=== PATIENT | female | born 1945 | race Caucasian/White ===

== ENCOUNTER 2017-03-19 02:55 | Inpatient (IN) | payer MEDICARE, OTHER ==
[~2017-03-19] VITALS: Ht 157.5 cm; Wt 64.6 kg
[2017-03-19] VITALS (143 sets, daily range): BP systolic 109–149; BP diastolic 52–89; PULSE 79–883; TEMP 98–98.3; O2SAT 76–100
[~2017-03-19 02:55] MED LIST: AMBIEN 5MG TABLE5 MG PO; AMBIEN10 MG PO; CALCIUM + D 6001 TA1 PO; ENBREL50 MG/ML SC; FAMILY PHARMAC0.4 MG PO; FOSAMAX 70MG TA70 MG PO; LEVAQUIN500 MG PO; NEXIUM 40MG40 MG PO; NORCO 325 MG-7.1 TAB PO; ORENCIA125 MG/ML SC; PHENERGAN 25 TA25 MG PO; PHENERGAN25 MG RC; PRED-PAK 455 MG PO; PROMETHAZINE25 M1 PO; SKELAXIN 800MG800 MG PO; SYNTHROID0.05 MG/TA PO; TIROSINT50 MCG PO; TRAMADOL PO; TREXALL5 MG PO; ULTRAM 50MG TAB50 MG; ZESTRIL40 MG PO; ZOFRAN 4MG T4 MG/TAB PO; [UNRECOGNIZED DRUG - OTHER] TP
[2017-03-19 03:26] LABS: BASO # 0.1 (0.0-0.2); BASO % 0.7 % (0.0-2.0); EOS # 0.1 (0.0-0.7); EOS % 1.2 % (0-4.0); GRAN # 7.4 (1.4-6.5); GRAN % 83.5 % (42.2-75.2); HEMATOCRIT 43.2 % (37.0-47.0); HEMOGLOBIN 13.5 g/dl (12.5-16.0); LYMPH # 0.5 (1.2-3.4); LYMPH % 5.8 % (20.0-51.0); MEAN CELL VOLUME 89 fl (80.0-100.0); MEAN CORPUSCULAR HEMOGLOBIN 28 pg (27.0-31.0); MEAN CORPUSCULAR HGB CONC 31 g/dl (33.0-37.0); MEAN PLATELET VOLUME 10.3 fl (7.4-10.4); MONO # 0.8 (0.1-0.6); MONO % 8.4 % (1.7-9.3); PLATELET COUNT 340 K/mm3 (130-400); RED BLOOD COUNT 4.85 M/mm3 (4.10-5.30); WHITE BLOOD COUNT 8.9 K/mm3 (4.8-10.8)
[2017-03-19 03:35] LABS: ALANINE AMINOTRANSFERASE 38 U/L (9-52); ALBUMIN 4.2 gm/dL (3.5-5.0); ALKALINE PHOSPHATASE 159 U/L (50-136); ANION GAP 12 mmol/L (7-16); BILIRUBIN,TOTAL 0.8 mg/dL (0.0-1.0); BLOOD UREA NITROGEN 16 mg/dL (7-17); CALCIUM 10.2 mg/dL (8.4-10.2); CARBON DIOXIDE 29 mmol/L (22-30); CHLORIDE 98 mmol/L (98-107); CREATININE, serum 0.95 mg/dL (0.52-1.25); GLUCOSE 103 mg/dL (74-106); POTASSIUM 4.5 mmol/L (3.4-5.0); SODIUM 139 mmol/L (137-145); TOTAL PROTEIN 7.7 gm/dL (6.4-8.2)
[2017-03-19 03:36] LABS: PARTIAL THROMBOPLASTIN TIME 29.5 SECONDS (26.0-37.0)
[2017-03-19 03:39] LABS: ALCOHOL(ethanol),MEDICAL < 10 mg/dL
[2017-03-19 03:47] LABS: B-TYPE NATRIURETIC PEPTIDE 139 pg/mL (0-125)
[2017-03-19 03:51] LABS: TROPONIN-I < 0.012 ng/mL (0.000-0.034)
[2017-03-19 04:39] LABS: COLLECTION METHOD CLEAN CATCH
[2017-03-19 04:49] LABS: PH 7 (5-8); SQUAMOUS EPITHELIAL 0-2 /hpf; URINE APPEARANCE Clear; URINE BACTERIA None Seen /hpf; URINE BILIRUBIN Negative (NEGATIVE); URINE BLOOD 1+ (NEGATIVE); URINE COLOR Straw; URINE GLUCOSE Negative (NEGATIVE); URINE KETONE Negative (NEGATIVE); URINE LEUKOCYTE ESTERASE Negative (NEGATIVE); URINE PROTEIN(semi-quant) Negative (NEGATIVE); URINE RBC 0-2 /hpf; URINE UROBILINOGEN Negative (NEGATIVE); URINE WBC 0-2 /hpf
[2017-03-19] MEDS ORDERED: NEURONTIN300 MG/CAP PO ×3 (05:39→10:25)
[2017-03-19] MEDS ORDERED: PAMELOR75 MG PO (05:40)
[2017-03-19] MEDS ORDERED: OTREXUP25 MG/0.4 SQ (10:28)
[2017-03-19] MEDS ORDERED: NORCO 325 MG-51 TAB PO (18:26)
[2017-03-20 00:24] VITALS: BP 153/81; PULSE 77; TEMP 98.4
[2017-03-20 04:52] VITALS: BP 147/87; PULSE 93; TEMP 98.2
[2017-03-20 05:02] LABS: ARTERIAL BLD GAS TCO2 CT 25.8; ARTERIAL BLOOD GAS BASE EXCESS 1.2 (-2-2); ARTERIAL BLOOD GAS HCO3 24.7 meq/L (22-26); ARTERIAL BLOOD GAS PO2 70.1 mmHg (80-100); ARTERIAL BLOOD GAS pH 7.46 (7.35-7.45); OXYHEMOGLOBIN 93.7 %
[2017-03-20 05:03] LABS: ALLEN TEST YES; ALLENS TEST RESULT PASS; ATS? YES
[2017-03-20 08:37] VITALS: BP 150/96; PULSE 92; TEMP 98
[2017-03-20 12:00] VITALS: BP 159/96; PULSE 98; TEMP 98.2
[2017-03-20] MEDS ORDERED: MULTAQ400 MG PO (12:42)
[2017-03-20] MEDS ORDERED: ELIQUIS 5MG PO (12:42)
[2017-03-20] MEDS ORDERED: HORIZANT600 MG PO (13:07)
[2017-03-20] MEDS ORDERED: FERROUS SU325 MG/TAB PO (13:10)
== END 2017-03-20 15:55 | disposition home or self-care (01) | DRG 309 ==
LOC: COL.ER 02:55 → ICU 05:40 → MEDICAL 17:16 → ICU 17:16 → MEDICAL 03-20 15:55
PROVIDERS: Emergency Medicine; Internal Medicine
PROC: 09Q0XZZ Repair Right External Ear, External Approach (ICD-10-PCS; principal; 2017-03-19)
DX: I48.91 Unspecified atrial fibrillation (principal); B02.29 Other postherpetic nervous system involvement; M06.9 Rheumatoid arthritis, unspecified; E03.9 Hypothyroidism, unspecified; R09.02 Hypoxemia; S01.311A Laceration without foreign body of right ear, initial encounter; Z66 Do not resuscitate; G47.33 Obstructive sleep apnea (adult) (pediatric); I10 Essential (primary) hypertension; R41.82 Altered mental status, unspecified; W06.XXXA Fall from bed, initial encounter; Y92.003 Bedroom of unspecified non-institutional (private) residence as the place of occurrence of the external cause
CPT/HCPCS: 99223-AI; 99239; J0690; J7030; J7050

== ENCOUNTER 2017-03-29 09:49 | Emergency (ER) | payer MEDICARE, OTHER ==
[~2017-03-29 09:49] MED LIST changes: +ELIQUIS 5MG PO; +FERROUS SU325 MG/TAB PO; +HORIZANT600 MG PO; +MULTAQ400 MG PO; +NEURONTIN300 MG/CAP PO; +NORCO 325 MG-51 TAB PO; +OTREXUP25 MG/0.4 SQ; +PAMELOR75 MG PO
[2017-03-29 09:56] VITALS: BP 174/97; PULSE 75
== END 2017-03-29 10:02 | disposition home or self-care (01) ==
LOC: COL.ER 09:49
DX: S01.81XD Laceration without foreign body of other part of head, subsequent encounter (principal); X58.XXXD Exposure to other specified factors, subsequent encounter

== ENCOUNTER → 2017-10-11 | Outpatient (CLI) | payer MEDICARE, OTHER | LOC: COL.PUL 08:00 | DX: R09.89 Other specified symptoms and signs involving the circulatory and respiratory systems (principal) ==

== ENCOUNTER → 2017-10-12 | Outpatient (CLI) | payer MEDICARE, OTHER | LOC: COL.RAD 10-11 09:30 | DX: M25.571 Pain in right ankle and joints of right foot (principal) | CPT/HCPCS: J3301; Q9967 ==

== ENCOUNTER → 2018-03-03 | Outpatient (CLI) | payer MEDICARE, OTHER | LOC: COL.RAD 08:00 | DX: M25.571 Pain in right ankle and joints of right foot (principal) | CPT/HCPCS: J3301; Q9967 ==

== ENCOUNTER 2019-10-13 10:47 | Observation (INO) | payer MEDICARE ==
[~2019-10-13] VITALS: Ht 157.5 cm; Wt 71.0 kg
[~2019-10-13 10:47] MED LIST changes: -SYNTHROID0.05 MG/TA PO; +SYNTHROID0.1 MG/TAB PO
[2019-10-13 14:38] VITALS: BP 104/68; PULSE 92; TEMP 98.2
[2019-10-13] MEDS ORDERED: XARELTO20 MG PO (14:39)
[2019-10-13] MEDS ORDERED: CARDIZEM CD 12120 MG PO (14:40)
[2019-10-13] MEDS ORDERED: NEURONTIN600 MG/TAB PO (14:41)
[2019-10-13 14:42] LABS: BASO # 0.1 (0.0-0.2); BASO % 1.1 % (0.0-2.0); EOS # 0.2 (0.0-0.7); EOS % 2.4 % (0-4.0); GRAN # 4.7 (1.4-6.5); GRAN % 71.1 % (42.2-75.2); HEMOGLOBIN 13.3 g/dl (12.5-16.0); LYMPH # 0.9 (1.2-3.4); MEAN CELL VOLUME 94 fl (80.0-100.0); MEAN CORPUSCULAR HEMOGLOBIN 30 pg (27.0-31.0); MEAN CORPUSCULAR HGB CONC 32 g/dl (33.0-37.0); MEAN PLATELET VOLUME 11.2 fl (7.4-10.4); MONO # 0.7 (0.1-0.6); MONO % 11.1 % (1.7-9.3); PLATELET COUNT 292 K/mm3 (130-400); RED BLOOD COUNT 4.46 M/mm3 (4.10-5.30); REDCELL DISTRIBUTION WIDTH-CV 14.6 % (11.5-14.5)
[2019-10-13] MEDS ORDERED: NEURONTIN300 MG/CAP PO ×2 (14:43)
[2019-10-13] MEDS ORDERED: VESICARE 5MG5 MG PO (14:45)
[2019-10-13] MEDS ORDERED: ULTRAM 50MG TAB50 MG PO (14:46)
[2019-10-13 14:58] LABS: ALBUMIN 4.4 gm/dL (3.5-5.0); BILIRUBIN,TOTAL 0.8 mg/dL (0.0-1.0); CALCIUM 9.6 mg/dL (8.4-10.2); CREATININE, serum 1.15 (0.52-1.25); POTASSIUM 4.8 mmol/L (3.4-5.0); TOTAL PROTEIN 7.4 gm/dL (6.4-8.2)
[2019-10-13 18:20] VITALS: BP 117/75; PULSE 87; TEMP 98
--- NOTE | 2019-10-13 18:33 | NUR ---
Pt rested well after arriving to the floor. Reported pain to abdomen d/t shingles and neuralgia but no issues with the hernia. Had a good appetite, POC discussed with patient who verbalizes understanding. Call light within reach.
[2019-10-13 19:39] VITALS: BP 108/85; PULSE 92; TEMP 97.7
--- NOTE | 2019-10-13 20:45 | NUR ---
Assessment complete. Resting in bed, watching television. Reports pain controlled at this time. Up ad alberto in room. Denies needs at this time.
[2019-10-13 23:43] VITALS: BP 109/84; PULSE 113; TEMP 97.6
[2019-10-14] VITALS (12 sets, daily range): BP systolic 108–135; BP diastolic 62–85; PULSE 57–116; TEMP 97.3–99.2
--- NOTE | 2019-10-14 01:30 | NUR ---
This nurse asked ELECTRICAL PROSPECTING OPERATOR if pt was up or moving prior to VS assessment. ELECTRICAL PROSPECTING OPERATOR reported that pt had just been up to bathroom.
--- NOTE | 2019-10-14 04:45 | NUR ---
Review of peripheral pulse and heart sounds suggested pt may be in an irregular rhythm. Notified physician and received orders for EKG and hospitalist consult. Orders initiated.
--- NOTE | 2019-10-14 06:55 | NUR ---
Notified Dr. Borden that EKG indicated A-fib and that the hospitalist had seen the patient and put in cardiology consult and an order for an echocardiogram.
[2019-10-14 07:43] LABS: CALCIUM 9.2 mg/dL (8.4-10.2); CREATININE, serum 0.83 (0.52-1.25); POTASSIUM 4.3 mmol/L (3.4-5.0)
--- NOTE | 2019-10-14 07:49 | NUR ---
RADIOLOGY CALLED AND NOTIFIED OF ECHO NEEDED FOR SURGICAL CLEARANCE.
[2019-10-14 07:57] LABS: TROPONIN-I < 0.012 ng/mL (0.000-0.035)
--- NOTE | 2019-10-14 08:00 | NUR ---
UPON ENTRY TO THE ROOM THE PATIENT IS RESTING IN BED. PATIENT IS A&OX4. IRREGULAR HEART RHYTHM WITH TACHYCARDIA NOTED. TELE IN PLACE. VSS. BOWEL SOUNDS ACTIVE ALL FOUR QUADRANTS. PATIENT DENIES COMPLAINTS OF N/V. POSITIVE PEDAL PULSES EQUAL BILATERALLY. NON-PITTING EDEMA TO BILATERAL FEET. LEFT AC TO INT. PATIENT CURRENTLY RATING HER PAIN A 7/10 ON A 0-10 SCALE AND DESCRIBES THE PAIN A CONSTANT BURNING ON HER RIGHT SIDE THAT WRAPS AROUND TO THE LOW RIGHT ABDOMEN. PATIENT STATES THAT THE PAIN IS FROM SHINGLES. NO LESIONS ON THE SKIN NOTED. SKIN INTACT. CALL LIGHT WITHIN REACH. PATIENT DENIES ANY OTHER NEEDS AT THIS TIME.
[2019-10-14 08:10] LABS: TSH w REFLEX 0.679 uIU/mL (0.465-4.680)
--- NOTE | 2019-10-14 08:14 | NUR ---
CALLED AND NOTIFIED OF CARDIOLOGY CONSULT. NO ORDERS GIVEN AT THIS TIME.
--- NOTE | 2019-10-14 10:25 | NUR ---
LR TO GRAVITY FLOW TUBING AND INFUSING TO LEFT AC IV. CONSENT FORM SIGNED AND ON PATIENT CHART. PATIENT TAKEN TO [facility] VIA BED BY VALENTIN STRATTON. WILL WAIT FOR PATIENT ARRIVAL BACK TO ROOM 349 POST-OP.
--- NOTE | 2019-10-14 11:57 | NUR ---
Plan is to return home with as care support. Patient reports that her Kem is going to transport her home and help her recover. Patient denies the use of any DME equipment. Patient obtains medications from [facility]. Patient reports that her PCP is Dr. Song. Patient denies any other concerns and reports that her spouse will transport her home. Will continue to follow for additional needs.
--- NOTE | 2019-10-14 14:35 | NUR ---
PATIENT ARRIVED BACK TO ROOM 349 VIA BED FROM PACU. PATIENT IS SEDATED BUT AROUSABLE. PATIENT OCCASIONALLY MOANS IN PAIN. ABDOMINAL LAP SITES X4 DRESSED WITH BANDAIDS AND ARE CD&I. SCD'S TO BLE. POST-OP VSS. WILL CONTINUE TO MONITOR.
--- NOTE | 2019-10-14 15:30 | NUR ---
Report received from VALENTIN Verma. Pt requesting assistance to bathroom, assisted to bathroom, SBA. Postops hooked back up, resting in bed, will continue to monitor.
--- NOTE | 2019-10-14 15:41 | NUR ---
REPORT GIVEN TO VALENTIN VALADEZ.
--- NOTE | 2019-10-14 18:06 | NUR ---
Pt doing well, has been up to bathroom multiple times. SCDs in place, resting in bed, sitting up and eating supper. Warm pack over upper abdomen for comfort. PT tolerating soft diet well for supper. Denies other needs, will give bedside shift report to nightshift nurse who will resume care.
--- NOTE | 2019-10-14 21:00 | NUR ---
Assessment complete. Resting in bed, watching television. C/O post operative abdominal. Warm pack provided, pain med provided. Denies other needs at this time.
[2019-10-15 04:23] VITALS: BP 115/71; PULSE 71; TEMP 98.5
[2019-10-15 08:14] VITALS: BP 114/76; PULSE 77; TEMP 98.2
--- NOTE | 2019-10-15 08:57 | NUR ---
Patient sitting up in bed eating breakfast. She did eat a little, but was overwhelmed but the large amount of food. She reports feeling better after getting a few hours rest this am. Pain manged at this time. Abdomen soft, lap site x4 bandaids intact. She reports passing flatus. Scds ble. Int. SHe is hopeful for discharge home today.
[2019-10-15] MEDS ORDERED: ULTRAM 50MG TAB50 MG PO ×4 (09:46→10:56)
--- NOTE | 2019-10-15 11:58 | NUR ---
Hospitalist, Domestic Travel Consultant, & Surgeon all rounded. Discharge orders obtained. Patient spouse here to pick her up. Int dc. Tele DC. Patient dresssed, assisted with tying her shoes. Script for ultram sent with patient, we reviewed medication safety & her home medication list. She is aware to hold her lisinipril & her eliquis until tmrw. She is to make follow up appt with cardiology, PCP & surgon tmrw. Patient denies questions or concerns. SHe is aware of any concerns to call doctor right aware
== END 2019-10-15 12:02 | disposition home or self-care (01) ==
LOC: COL.RAD 10:47 → SURG 10:47 → COL.RAD 14:30 → EDSTATUS 14:30 → COL.RAD 10-14 05:13 → SURG 10-14 05:14
PROVIDERS: Nurse Practitioner Family; ADMIT Surgery
DX: K40.20 Bilateral inguinal hernia, without obstruction or gangrene, not specified as recurrent (principal); I48.91 Unspecified atrial fibrillation; I10 Essential (primary) hypertension; E03.9 Hypothyroidism, unspecified; M06.9 Rheumatoid arthritis, unspecified; M81.0 Age-related osteoporosis without current pathological fracture; Z79.01 Long term (current) use of anticoagulants; Z79.891 Long term (current) use of opiate analgesic; Z79.899 Other long term (current) drug therapy
CPT/HCPCS: OP; 99223; C1781; G0378; J0282; J1170; J2405; J2704; J2710; J3010; J7060; Q9967

== ENCOUNTER → 2019-10-24 | Outpatient (CLI) | payer MEDICARE, OTHER ==
[~2019-10-24] MED LIST changes: +CARDIZEM CD 12120 MG PO; +NEURONTIN600 MG/TAB PO; +ULTRAM 50MG TAB50 MG PO; +VESICARE 5MG5 MG PO; +XARELTO20 MG PO
== END ==
LOC: MC.RAD 18:42
DX: Z12.31 Encounter for screening mammogram for malignant neoplasm of breast (principal)

== ENCOUNTER → 2019-10-27 | Outpatient (CLI) | payer MEDICARE, OTHER | LOC: MC.RAD 09:10 | DX: R92.2 Inconclusive mammogram (principal) | CPT/HCPCS: G0279 ==

== ENCOUNTER → 2021-04-08 | Outpatient (CLI) | payer MEDICARE | LOC: MHCPAIN 09:58 | DX: M47.817 Spondylosis without myelopathy or radiculopathy, lumbosacral region (principal); M53.3 Sacrococcygeal disorders, not elsewhere classified; M25.551 Pain in right hip; B02.29 Other postherpetic nervous system involvement | CPT/HCPCS: G0463 ==

== ENCOUNTER → 2021-04-17 | Outpatient (CLI) | payer MEDICARE | LOC: MHCPAIN 13:26 | DX: M47.817 Spondylosis without myelopathy or radiculopathy, lumbosacral region (principal); M53.3 Sacrococcygeal disorders, not elsewhere classified | CPT/HCPCS: G0260; J1040; Q9967 ==

== ENCOUNTER → 2021-05-06 | Outpatient (CLI) | payer MEDICARE | LOC: MHCPAIN 10:19 | DX: M53.3 Sacrococcygeal disorders, not elsewhere classified (principal); B02.29 Other postherpetic nervous system involvement; G89.29 Other chronic pain | CPT/HCPCS: G0463 ==

== ENCOUNTER 2021-05-19 09:45 | Outpatient (RCR) | payer MEDICARE | END 2021-05-30 | disposition home or self-care (01) | LOC: PT.GENESIS | DX: M79.671 Pain in right foot (principal); Z98.890 Other specified postprocedural states ==

== ENCOUNTER → 2021-09-30 | Outpatient (CLI) | payer MEDICARE | LOC: MHCPAIN 14:00 | DX: M53.3 Sacrococcygeal disorders, not elsewhere classified (principal); M79.2 Neuralgia and neuritis, unspecified; M54.50 Low back pain, unspecified; B02.29 Other postherpetic nervous system involvement | CPT/HCPCS: G0463 ==

== ENCOUNTER → 2021-10-09 | Outpatient (CLI) | payer MEDICARE | LOC: MHCPAIN 12:21 | DX: M53.3 Sacrococcygeal disorders, not elsewhere classified (principal); M47.817 Spondylosis without myelopathy or radiculopathy, lumbosacral region | CPT/HCPCS: G0260; J1040; Q9967 ==

== ENCOUNTER 2023-08-18 10:00 | Outpatient (RCR) | payer MEDICARE | END 2023-08-29 | disposition home or self-care (01) | LOC: PT.GENESIS | DX: M76.72 Peroneal tendinitis, left leg (principal) ==

== ENCOUNTER 2023-11-15 16:04 | Inpatient (IN) | payer MEDICARE ==
[~2023-11-15] VITALS: Ht 157.5 cm; Wt 66.9 kg
[~2023-11-15 16:04] MED LIST changes: +OTREXUP25 MG/0.4 PO; -OTREXUP25 MG/0.4 SQ
[2023-11-15] MEDS ORDERED: Morphine 4 MG/ML VIAL IV ONE (16:30)
[2023-11-15] MEDS ORDERED: NS 1,000 ML IV ONE (16:30)
[2023-11-15 17:07] LABS: INR 1.2 (0.8-3.0)
[2023-11-15 17:22] LABS: ALANINE AMINOTRANSFERASE 14 U/L (0-55); ALBUMIN 3.2 g/dL (3.4-4.8); ALKALINE PHOSPHATASE 117 U/L (40-150); ANION GAP 13 mmol/L (7-16); AST,SGOT 21 U/L (5-34); BILIRUBIN,TOTAL 1.2 mg/dL (0.2-1.2); BLOOD UREA NITROGEN 7 mg/dL (10-20); CALCIUM 9.5 mg/dL (8.4-10.2); CHLORIDE 100 mEq/L (98-107); CREATINE KINASE 308 U/L (29-168); CREATININE, serum 0.63 mg/dL (0.57-1.11); GLUCOSE 119 mg/dL (70-99); SODIUM 136 mEq/L (136-145); TOTAL PROTEIN 6.6 g/dl (6.2-8.1)
[2023-11-15 17:30] LABS: TROPONIN-I < 0.010 ng/mL (0.00-0.033)
[2023-11-15 17:57] LABS: BASO # 0.1 K/mm3 (0.0-0.2); BASO % 0.6 % (0.0-2.0); EOS % 0.3 % (0.0-4.0); GRAN # 8.1 K/mm3 (1.4-6.5); GRAN % 80.2 % (42.2-75.2); HEMATOCRIT 40.7 % (37.0-47.0); HEMOGLOBIN 13.5 g/dl (12.5-16.0); LYMPH # 0.5 K/mm3 (1.2-3.4); LYMPH % 4.9 % (20.0-51.0); MEAN CELL VOLUME 91 fl (80.0-100.0); MEAN CORPUSCULAR HEMOGLOBIN 30 pg (27-31); MEAN CORPUSCULAR HGB CONC 33 g/dl (33.0-37.0); MEAN PLATELET VOLUME 10.7 fl (7.4-10.4); MONO # 1.4 K/mm3 (0.1-0.6); MONO % 13.6 % (1.7-9.3); PLATELET COUNT 326 K/mm3 (130-400); RED BLOOD COUNT 4.48 M/mm3 (4.10-5.30); REDCELL DISTRIBUTION WIDTH-CV 15.5 % (11.5-14.5)
[2023-11-15 18:23] LABS: COLLECTION METHOD IN
[2023-11-15 18:31] LABS: URINE APPEARANCE CLEAR (CLEAR/HAZY); URINE BLOOD NEGATIVE (NEGATIVE); URINE COLOR YELLOW (YELLOW); URINE GLUCOSE NEGATIVE (NEGATIVE); URINE KETONE TRACE (NEGATIVE); URINE NITRATE NEGATIVE (NEGATIVE); URINE PROTEIN(semi-quant) TRACE (NEGATIVE)
[2023-11-15] MEDS ORDERED: dilTIAZem 25 MG/5 ML VIAL IV ONE (18:45)
[2023-11-15] MEDS ORDERED: *Potassium Replacement Protocol MC SCH (19:45)
--- NOTE | 2023-11-15 20:08 | NUR ---
RT RECIEVED CALL FROM LAB AT 1941 REGARDING CARBOXY HEMOGLOBIN SPECIMEN. RT RECIEVED SPECIMEN AT 1944. SPECIMEN DRAWN TIME ON PURPLE TOP TUBE NOTED TO BE 1645. SPECIMEN RAN AT 1947. CRITICAL LAB RESULTS GIVEN TO ROSA TRACEY MD. ORDERS FOR NEW VBG GIVEN.
[2023-11-15 21:00] VITALS: BP_SYST 123
[2023-11-15 21:51] LABS: ARTERIAL BLD GAS O2 SATURATION 99.2 % (92-100); ARTERIAL BLD GAS TCO2 CT 23.5; ARTERIAL BLOOD GAS BASE EXCESS -0.5 (-2-2); ARTERIAL BLOOD GAS HCO3 22.5 meq/L (22-26); ARTERIAL BLOOD GAS PCO2 32.1 mmHg (35-45); ARTERIAL BLOOD GAS pH 7.46 (7.35-7.45)
[2023-11-15 21:52] LABS: ARTERIAL BLOOD GAS PO2 143.7 mmHg (80-100)
[2023-11-15] MEDS ORDERED: Morphine 4 MG/ML VIAL IV PRN (22:15)
[2023-11-15] MEDS ORDERED: Ondansetron 4 MG/2 ML VIAL IV PRN (22:15)
[2023-11-15] MEDS ORDERED: NS 1,000 ML IV SCH (22:15)
[2023-11-15] MEDS ORDERED: Acetaminophen 325 MG TAB PO PRN (22:15)
[2023-11-15] MEDS ORDERED: LIPITOR20 MG PO (22:16)
[2023-11-15] MEDS ORDERED: SINGULAIR 110 MG/TAB PO (22:16)
[2023-11-15] MEDS ORDERED: ZYRTEC 10MG10 MG PO (22:17)
[2023-11-15] MEDS ORDERED: ZITHROMAX 250M250 MG PO ×2 (22:17→22:18)
[2023-11-15] MEDS ORDERED: DITROPAN XL10 MG PO (22:17)
[2023-11-15 23:30] VITALS: BP 125/86; PULSE 102; TEMP 97.9
[2023-11-16] VITALS (17 sets, daily range): BP systolic 83–132; BP diastolic 49–82; PULSE 82–114; TEMP 97.6–98.3
[2023-11-16 05:54] LABS: BASO # 0.1 K/mm3 (0.0-0.2); BASO % 0.9 % (0.0-2.0); EOS % 0.5 % (0.0-4.0); GRAN # 6.1 K/mm3 (1.4-6.5); LYMPH # 0.5 K/mm3 (1.2-3.4); LYMPH % 6.3 % (20.0-51.0); MEAN CELL VOLUME 91 fl (80.0-100.0); MEAN CORPUSCULAR HEMOGLOBIN 31 pg (27-31); MEAN CORPUSCULAR HGB CONC 34 g/dl (33.0-37.0); MEAN PLATELET VOLUME 10.2 fl (7.4-10.4); MONO # 1.4 K/mm3 (0.1-0.6); MONO % 17.1 % (1.7-9.3); PLATELET COUNT 295 K/mm3 (130-400); RED BLOOD COUNT 3.92 M/mm3 (4.10-5.30); REDCELL DISTRIBUTION WIDTH-CV 15.6 % (11.5-14.5)
[2023-11-16 05:55] LABS: HEMATOCRIT 35.5 % (37.0-47.0)
[2023-11-16 06:10] LABS: ALBUMIN 2.6 g/dL (3.4-4.8); CALCIUM 8.6 mg/dL (8.4-10.2); CREATININE, serum 0.56 mg/dL (0.57-1.11); MAGNESIUM 1.7 mg/dL (1.6-2.6); PHOSPHOROUS 2.3 mg/dL (2.3-4.7); POTASSIUM 3.6 mEq/L (3.5-4.5)
[2023-11-16] MEDS ORDERED: METHOTREXA2.5 MG/TAB PO (06:55)
[2023-11-16] MEDS ORDERED: MACROBID 1100 MG/CAP PO (07:02)
[2023-11-16] MEDS ORDERED: Potassium Bicarbonate/Citrate 20 MEQ Effervescent TAB PO SCH (07:15)
[2023-11-16] MEDS ORDERED: Albuterol/Ipratropium 3 MG-0.5 MG/3 ML Neb Soln IH PRN (08:45)
[2023-11-16] MEDS ORDERED: GENTLE IRON 281 EACH PO (08:53)
[2023-11-16] MEDS ORDERED: dilTIAZem CD (24-HR) 120 MG CAP PO SCH (09:00)
[2023-11-16] MEDS ORDERED: Lisinopril 20 MG TAB PO SCH (09:00)
--- NOTE | 2023-11-16 09:45 | NUR ---
pt a&ox4 resting in bed. pt reports no pain at rest. pt npo for potential surgery today. cardiolog in assessing patient, pt in afib on tele. dominguez to dd with clear yellow urine output. potassium replaced per protocol. new IV started by AIVS. pt denies needs at this time. call light in reach. fall precautions in place.
[2023-11-16] MEDS ORDERED: Gabapentin 300 MG CAP PO SCH ×2 (12:00→21:00)
--- NOTE | 2023-11-16 12:15 | NUR ---
machine clothing worker met with patient to discuss discharge planning. Patient reports she lives alone in [place]. Patient reports her 4 months ago, so her next of kin and best contact would be Ramy, her son, P# [phone]. Patient also wanted to list her friend, Norm Rosa, P# [phone] as another contact. PCP is Dr. Song, pharmacy is [facility]. No issues affording medications. Insurance is Medicare Advantage [facility]. Patient reports her DPOA-HC is Ramy and her PCP should have a copy of the form. No DME, Patient reports to be independent with ADLS. Patient reports she is able to transport herself to and from appointments prior to this hospitalization. SW discussed discharge plan and the liklihood of patient needing post acute rehab. SW provided Medicare.gov list of options, patient wants a referral sent to [facility]. SW explained she would contact her son to give him an update and discuss discharge plan. Patient reports her son is currently at her home working with a company on the gas leak which is what lead patient to falling yesterday. SW noticed patient's son was in her hospital room. SW met with patient and patient's son and discussed discharge plan. Patient's son reports to live in [place] and is currently working with a company to get patient's gas leak fixed. Patient's son expressed agreement with post acute rehab if needed after surgery. machine clothing worker met with patient's nurse and notified her of the discharge plan. machine clothing worker secure emailed referral to [facility]. ODILON contacted Stephanie at [facility] to obtain DPOA-HC. Stephanie faxed social media marketer the DPOA-HC and living will. ODILON notes patient appointed her , Donald, as primary then her son, Ramy. Patient's recently passed so her DPOA-HC is Ramy. machine clothing worker placed these copies on the chart. Discharge plan: SNF
[2023-11-16] MEDS ORDERED: Glycopyrrolate 0.2 MG/ML 1 ML VIAL ONE ×2 (13:37→13:51)
[2023-11-16] MEDS ORDERED: Lidocaine PF 2% (20 MG/ML) 5 ML VIAL ONE ×3 (13:37→13:51)
[2023-11-16] MEDS ORDERED: dexAMETHasone 10 MG/ML VIAL ONE ×2 (13:37→13:51)
[2023-11-16] MEDS ORDERED: fentaNYL 50 MCG/ML 2 ML VIAL ONE ×3 (13:37→15:00)
[2023-11-16] MEDS ORDERED: NS 10 ML IV ONE ×2 (13:37→13:51)
[2023-11-16] MEDS ORDERED: Ondansetron 4 MG/2 ML VIAL ONE ×2 (13:37→13:51)
[2023-11-16] MEDS ORDERED: Midazolam 2 MG/2 ML VIAL ONE (13:53)
--- NOTE | 2023-11-16 13:55 | NUR ---
utility maintenance worker was notified [facility] is able to accept patient pending insurance authorization. SW will submit for authorization after patient's surgery and PT eval is completed. DIscharge plan: [facility] - [facility]
--- NOTE | 2023-11-16 14:00 | NUR ---
pt off floor for procedure.
[2023-11-16] MEDS ORDERED: Naloxone 0.4 MG/ML VIAL IV PRN (14:30)
[2023-11-16] MEDS ORDERED: D5LR 1,000 ML IV SCH (14:30)
[2023-11-16] MEDS ORDERED: HYDROmorphone 0.5 MG/0.5 ML SYRINGE IV PRN (14:30)
[2023-11-16] MEDS ORDERED: oxyCODONE 5 MG TAB PO PRN (14:30)
[2023-11-16] MEDS ORDERED: HYDROmorphone 2 MG/1 ML VIAL ONE (15:09)
[2023-11-16] MEDS ORDERED: Topical Skin Adhesive 1 EACH (1 ML) TOP ONE (16:06)
[2023-11-16] MEDS ORDERED: droPERidol 2.5 MG/ML 2 ML VIAL IV PRN (16:30)
[2023-11-16] MEDS ORDERED: Ondansetron 4 MG/2 ML VIAL IV PRN (16:30)
[2023-11-16] MEDS ORDERED: hydrALAZINE 20 MG/ML 1 ML VIAL IV PRN (16:30)
[2023-11-16] MEDS ORDERED: fentaNYL 50 MCG/ML 1 ML SYRINGE/VIAL [PACU/SDC ONLY] IV PRN (16:30)
[2023-11-16] MEDS ORDERED: HYDROmorphone 1 MG/1 ML SYRINGE [PACU/SDC ONLY] IV PRN (16:30)
[2023-11-16] MEDS ORDERED: NS 1,000 ML IV ONE (19:00)
[2023-11-16] MEDS ORDERED: ceFAZolin 1 G in Water For Injection,Sterile 10 ML IV SCH (20:00)
[2023-11-16] MEDS ORDERED: Celecoxib 200 MG CAP PO SCH (21:00)
--- NOTE | 2023-11-16 22:26 | NUR ---
PATIENT ALERT AND ORIENTED BUT FORGETFUL. BP LOW, BOLUS INFUSING INTO RIGHT UPPER ARM IV. PATIENT REPORTS PAIN 8/10 TO RIGHT HIP. PATIENT ON 2L NC. PATIENT TOLERATING PO, PM MEDS ADMINISTERED. CARIZEM GTT GOING AT 5MG/HOUR INTO LEFT HAND IV. NO FURTHER NEEDS. CALL LIGHT IN REACH. BED ALARM ON.
[2023-11-17] VITALS (14 sets, daily range): BP systolic 86–141; BP diastolic 59–81; PULSE 88–108; TEMP 97.2–98.1
--- NOTE | 2023-11-17 00:19 | NUR ---
CONTACTED DR. AGARWAL TO REPORT PATIENT'S CONTINUED LOW BLOOD PRESSURE, RUNNING 80'S OVER 50'S. ORDER TO COMPLETE SECOND BOLUS AND ADMINISTER 5MG LOPRESSOR, AND DC CARDIZEM GTT. PATIENT'S BP CONTINUES TO RUN IN THE 80'S SYSTOLIC. DR. AGARWAL AWARE.
[2023-11-17] MEDS ORDERED: Metoprolol Tartrate 5 MG/5 ML VIAL IV ONE (00:30)
[2023-11-17] MEDS ORDERED: NS 1,000 ML IV ONE ×2 (00:30→22:00)
[2023-11-17] MEDS ORDERED: NS 1,000 ML IV SCH (05:00)
[2023-11-17] MEDS ORDERED: Metoprolol Tartrate 5 MG/5 ML VIAL IV PRN (05:00)
[2023-11-17 07:05] LABS: BASO % 0.4 % (0.0-2.0); GRAN # 6.3 K/mm3 (1.4-6.5); GRAN % 81.1 % (42.2-75.2); LYMPH # 0.5 K/mm3 (1.2-3.4); LYMPH % 6.8 % (20.0-51.0); MEAN CELL VOLUME 92 fl (80.0-100.0); MEAN CORPUSCULAR HGB CONC 34 g/dl (33.0-37.0); MONO # 0.8 K/mm3 (0.1-0.6); MONO % 10.7 % (1.7-9.3); PLATELET COUNT 233 K/mm3 (130-400); RED BLOOD COUNT 3.16 M/mm3 (4.10-5.30); REDCELL DISTRIBUTION WIDTH-CV 15.8 % (11.5-14.5)
[2023-11-17 07:07] LABS: ALBUMIN 2.2 g/dL (3.4-4.8); CALCIUM 8.6 mg/dL (8.4-10.2); CREATININE, serum 0.56 mg/dL (0.57-1.11); MAGNESIUM 1.8 mg/dL (1.6-2.6); POTASSIUM 4.4 mEq/L (3.5-4.5)
[2023-11-17 08:04] LABS: HEMOGLOBIN 9.8 g/dl (12.5-16.0); MEAN CORPUSCULAR HEMOGLOBIN 31 pg (27-31)
--- NOTE | 2023-11-17 08:25 | NUR ---
pt a&ox4 resting in bed, son at bedside. pt reports pain in her right hip, requesting pain medication. tylenol given prn per emar. dominguez remains in place. pt has 3 incisions to right leg, distal incision replaced due to bloody drainage. pt denies needs at this time. fall precautions in place. call light in reach.
[2023-11-17] MEDS ORDERED: Calcium Carbonate 500 MG TAB PO SCH (09:00)
[2023-11-17] MEDS ORDERED: Ascorbic Acid 500 MG TAB PO SCH (09:00)
[2023-11-17] MEDS ORDERED: Rivaroxaban 10 MG TAB PO SCH (09:00)
[2023-11-17] MEDS ORDERED: Acetaminophen 500 MG TAB PO SCH ×2 (09:00→12:00)
[2023-11-17] MEDS ORDERED: Baclofen 10 MG TAB PO SCH (09:30)
[2023-11-17] MEDS ORDERED: Digoxin 0.25 MG/ML 2 ML VIAL IV ONE ×2 (11:30→17:30)
[2023-11-17] MEDS ORDERED: Multivitamin TAB PO SCH (12:00)
--- NOTE | 2023-11-17 12:17 | NUR ---
Authorization request faxed to [facility] for SNF approval. Discharge plan: SNF pending authorization
--- NOTE | 2023-11-17 20:00 | NUR ---
PT A&OX3 LAYING IN BED. VSS. X3 DRSG TO RLE CDI, DENIES PAIN TO RT HIP. PT STATES PAIN IN RT HAND IS 5/10 FROM IV MED GIVEN EARLIER. GAVE SCHEDULED TYLENOL & WARM BLANKET. RICHMOND TO DD WITH KATHYA OUTPUT. NS @ 100ML/HR INFUSING TO RT UPPER ARM. BLE SCD & TEDS ON. PT DENYING OTHER NEEDS. CALL LIGHT IN REACH & FALL PRECAUTIONS IN PLACE.
--- NOTE | 2023-11-17 21:00 | NUR ---
PT REPORTING INCREASE IN PAIN TO RT HAND. PT MOANING IN ROOM & STATES PAIN IS NOW 9. BP ELEVATED 140S/80S. GAVE PRN OXYCODONE PER MAR
[2023-11-17] MEDS ORDERED: fentaNYL 50 MCG/ML 2 ML VIAL IV ONE (22:00)
--- NOTE | 2023-11-17 22:00 | NUR ---
PT CONTINUES TO C/O RT HAND PAIN 02/07. HR PER TELE IN 130S. HOSPITALIST LUIS ON UNIT & AWARE. NEW ORDERS FOR IV FENTANYL & IVF BOLUS GIVEN PER JUL.
--- NOTE | 2023-11-17 23:00 | NUR ---
PT NOW RESTING COMFORTABLY IN BED W/ UNLABORED RESP. PER TELE HR NOW 90S-100S
[2023-11-18] VITALS (20 sets, daily range): BP systolic 105–134; BP diastolic 62–90; PULSE 76–98; TEMP 97.5–98.5
--- NOTE | 2023-11-18 05:22 | NUR ---
PT RATING PAIN 8/10 TO RT HIP THIS MORNING, GAVE PRN NORCO & ICEPACK. PT STATES HER RT HAND FEELS MUCH BETTER. DENIES OTHER NEEDS. CALL LIGHT IN REACH & BED ALARM ON
[2023-11-18 06:34] LABS: BASO % 0.1 % (0.0-2.0); GRAN # 5.8 K/mm3 (1.4-6.5); LYMPH # 0.5 K/mm3 (1.2-3.4); LYMPH % 6.6 % (20.0-51.0); MEAN CELL VOLUME 91 fl (80.0-100.0); MEAN CORPUSCULAR HGB CONC 33 g/dl (33.0-37.0); MEAN PLATELET VOLUME 10.3 fl (7.4-10.4); MONO # 1.3 K/mm3 (0.1-0.6); MONO % 17.1 % (1.7-9.3); PLATELET COUNT 325 K/mm3 (130-400); RED BLOOD COUNT 2.59 M/mm3 (4.10-5.30); REDCELL DISTRIBUTION WIDTH-CV 15.6 % (11.5-14.5)
[2023-11-18 06:39] LABS: HEMATOCRIT 23.5 % (37.0-47.0); HEMOGLOBIN 7.7 g/dl (12.5-16.0); MEAN CORPUSCULAR HEMOGLOBIN 30 pg (27-31)
[2023-11-18 06:56] LABS: CALCIUM 8.5 mg/dL (8.4-10.2); CREATININE, serum 0.56 mg/dL (0.57-1.11); MAGNESIUM 1.7 mg/dL (1.6-2.6); PHOSPHOROUS 1.6 mg/dL (2.3-4.7); POTASSIUM 4.2 mEq/L (3.5-4.5)
--- NOTE | 2023-11-18 07:25 | NUR ---
Pt awake, laying in bed. No needs at this time. Call light in reach.
--- NOTE | 2023-11-18 08:44 | NUR ---
Pt sitting up in bed. A&Ox4. VSS. S1S2 with irregular rhythm. Clear lungs, diminished in bases. ABD round, soft, non-tender with audible bowel sounds. Palpable pulses in all extremities with 3/5 strength. Incisions on R hip is CDI with gauze dressing, R thigh CDI with gauze dressing, R knee, CDI with bulky SARAH dressing. TEDs and SCDs on. Pt denies n/v, hedache, dizziness. Pt reports pain 2/10 and tolerable. Pt on tele. No further needs. Family at bedside and Pt eating breakfast. Call light in reach and bed alarm on.
--- NOTE | 2023-11-18 10:52 | NUR ---
matrix worker received a call from community care team reporting pt was approved for SNF. ODILON spoke with Fiordaliza at [facility] and provided update on auth. She requested clinical updates. ODILON faxed updates at 9am. SW attended clinical rounding and was informed pt was hypotensive and had a fluid bolus that dropped her HGB. She will stay the night. ODILON informed Fiordaliza at [facility]. Discharge Plan: [facility] SNF when stable
--- NOTE | 2023-11-18 11:12 | NUR ---
Transferred Pt to chair with OT. Pt unable to stand on own. x2 assist lift and pivot to chair. No further needs.
--- NOTE | 2023-11-18 14:04 | NUR ---
Pt reports pain 12/07. Tolerable at the moment. PCT rechecked BP: 101/71. Call light in reach and bed alarm on. No further needs at this time.
--- NOTE | 2023-11-18 15:05 | NUR ---
Blood transfusion started. Pt's VSS. Explained common reactions. Verified blood unit with second RN
--- NOTE | 2023-11-18 15:17 | NUR ---
Pt tolerating infusion well. Increased infusion rate to 120 cc/hr. Call light in reach. Bed alarm on.
--- NOTE | 2023-11-18 16:51 | NUR ---
Pt tolerating infusion well. Pt requested to brush teeth. Assisted Pt with oral hygiene. No further needs. Call light in reach and bed alarm on.
--- NOTE | 2023-11-18 20:30 | NUR ---
PT A&O X4 LAYING IN BED. VSS. X3 DRSG TO RT HIP CDI. PT REPORTS PAIN 10/07, GAVE SCHEDULED TYLNEOL &ICEPACK. BLE SCDS ON. RICHMOND TO DD WITH KATHYA OUTPUT. INT TO RT UPPER ARM PATENT. PT DENYING FURTHER NEEDS. CALL LIGHT IN REACH & FALL PRECAUTIONS IN PLACE
[2023-11-18 21:03] LABS: HEMATOCRIT 29.4 % (37.0-47.0); HEMOGLOBIN 9.8 g/dl (12.5-16.0)
--- NOTE | 2023-11-18 22:25 | NUR ---
PT REQUESTING PAIN MEDS FOR RT HIP PAIN 01/07, GAVE PRN OXYCODONE PER MAR
[2023-11-19 00:20] VITALS: BP_SYST 134
[2023-11-19 04:00] VITALS: BP 124/76; PULSE 89; TEMP 97.6
[2023-11-19 04:53] VITALS: BP_SYST 124
[2023-11-19 07:04] LABS: MEAN CELL VOLUME 92 fl (80.0-100.0); MEAN CORPUSCULAR HEMOGLOBIN 30 pg (27-31); MEAN CORPUSCULAR HGB CONC 33 g/dl (33.0-37.0); MEAN PLATELET VOLUME 10.5 fl (7.4-10.4); PLATELET COUNT 339 K/mm3 (130-400); RED BLOOD COUNT 3.32 M/mm3 (4.10-5.30); REDCELL DISTRIBUTION WIDTH-CV 16.3 % (11.5-14.5)
[2023-11-19 07:08] LABS: HEMATOCRIT 30.5 % (37.0-47.0)
[2023-11-19 07:11] LABS: CALCIUM 8.6 mg/dL (8.4-10.2); CREATININE, serum 0.52 mg/dL (0.57-1.11); MAGNESIUM 1.7 mg/dL (1.6-2.6); PHOSPHOROUS 2.6 mg/dL (2.3-4.7); POTASSIUM 4.1 mEq/L (3.5-4.5)
--- NOTE | 2023-11-19 07:18 | NUR ---
Pt laying in bed. No needs at this time. Call light in reach.
[2023-11-19] MEDS ORDERED: dilTIAZem 30 MG TAB PO SCH (08:00)
[2023-11-19 08:24] LABS: BAND 4 % (0-10); LYMPHOCYTE 16 % (20.0-51.0); NEUTROPHILS 69 % (42.0-75.2); NUCLEATED RED BLOOD CELL 1 (0-6); PLATELET ESTIMATE NORMAL (NORMAL)
[2023-11-19 08:25] LABS: ANISOCYTOSIS 1+
[2023-11-19 08:27] LABS: BURR CELLS 2+
[2023-11-19 08:28] LABS: POLYCHROMASIA 1+
--- NOTE | 2023-11-19 08:28 | NUR ---
Pt laying in bed. Pt reporting pain 8/10 in right ABD, and down R leg. Pt thinks it is a mixture of surgical and Shingles pain. A&Ox4. VSS. S1S2 with irregular rhythm. Clear lungs on RA. ABD round, soft, non-tender with audible bowel sounds. Palpable pulses in all extremities with 4/5 strength in BUE and LLL, 3/5 strength in LRL. Pt denies n/v, headache, dizziness. R hip incision is CDI with gauze, Middle incision CDI with gauze, R knee incision CDI with bulky SARAH wrap. No further needs. Call light in reach and bed alarm on.
[2023-11-19] MEDS ORDERED: Magnesium Sulfate 4% 50 ML IV ONE (09:00)
[2023-11-19 09:04] VITALS: BP 136/73; PULSE 104; TEMP 97.8
[2023-11-19 09:25] VITALS: BP_SYST 136
[2023-11-19] MEDS ORDERED: CARDIZEM 30MG T30 MG PO (10:22)
[2023-11-19] MEDS ORDERED: TYLENOL 500MG500 MG PO (10:24)
[2023-11-19] MEDS ORDERED: ROXICODONE 55 MG/TAB PO (10:26)
--- NOTE | 2023-11-19 11:26 | NUR ---
sanitation worker hosing machinery attended clinical rounding with Dr. Mullen and pt is cleared to discharge to [facility] today. ODILON faxed updates and discharge orders to [facility]. She confirmed a transport time of 12:30pm. ODILON informed family and consumer science professor, VALENTIN Barber, and wrote the time on the whiteboard. ODILON met with pt and sonChapito this morning to complete IM from Medicare. Pt signed and verbalized understanding. Copy provided and original in chart. Discharge Plan: 12:30pm to [facility]
--- NOTE | 2023-11-19 12:21 | NUR ---
Pt sitting in bedside chair. Finished with lunch. Dressed Pt for transport. Removed tele box. D/C Pt's IV from R upper arm. Tip intact and pressure bandage applied. Call light in reach. Transport from [facility] on their way.
[2023-11-19 12:41] VITALS: BP 103/69; PULSE 75; TEMP 97.9
--- NOTE | 2023-11-19 12:54 | NUR ---
Pt transported to [facility]. Called report to VALENTIN Mclaughlin. Answered questions. No further needs.
== END 2023-11-19 12:55 | DRG 481 ==
LOC: COL.ER 16:04 → SURG 18:44
PROVIDERS: Internal Medicine; Nurse Practitioner; Orthopaedic Surgery Sports Medicine; ADMIT Internal Medicine
PROC: 0QS606Z Reposition Right Upper Femur with Intramedullary Internal Fixation Device, Open Approach (ICD-10-PCS; principal; 2023-11-16 14:30)
PROC: 30233N1 Transfusion of Nonautologous Red Blood Cells into Peripheral Vein, Percutaneous Approach (ICD-10-PCS; 2023-11-18)
DX: S72.141A Displaced intertrochanteric fracture of right femur, initial encounter for closed fracture (principal); B02.29 Other postherpetic nervous system involvement; I48.19 Other persistent atrial fibrillation; I10 Essential (primary) hypertension; E78.5 Hyperlipidemia, unspecified; G47.33 Obstructive sleep apnea (adult) (pediatric); M06.9 Rheumatoid arthritis, unspecified; M81.0 Age-related osteoporosis without current pathological fracture; Z96.621 Presence of right artificial elbow joint; W18.39XA Other fall on same level, initial encounter; Z96.622 Presence of left artificial elbow joint; E03.9 Hypothyroidism, unspecified; M25.572 Pain in left ankle and joints of left foot; G89.29 Other chronic pain; M19.90 Unspecified osteoarthritis, unspecified site; I95.81 Postprocedural hypotension; I95.9 Hypotension, unspecified; J44.9 Chronic obstructive pulmonary disease, unspecified; E83.39 Other disorders of phosphorus metabolism; D64.9 Anemia, unspecified; I08.1 Rheumatic disorders of both mitral and tricuspid valves; M25.571 Pain in right ankle and joints of right foot; E87.6 Hypokalemia; Z79.01 Long term (current) use of anticoagulants; Z90.49 Acquired absence of other specified parts of digestive tract; Z79.899 Other long term (current) drug therapy; Z79.890 Hormone replacement therapy; Y93.89 Activity, other specified; Y92.098 Other place in other non-institutional residence as the place of occurrence of the external cause; Z23 Encounter for immunization
CPT/HCPCS: A4314; A9284; C1713; C1769; J0690; J1100; J1160; J1170; J2250; J2270; J2405; J2704; J2795; J3010; J3475; J3480; J7030; J7050; J7121; P9016